=== PATIENT | female | born 1975 | race American Indian/Alaskan Native ===

== ENCOUNTER 2018-04-23 15:00 | Outpatient (CLI) | payer OTHER ==
--- NOTE | 2018-04-23 16:34 | Mammography Report ---
BILATERAL DIGITAL SCREENING MAMMOGRAM WITH CAD:04/23/18 CLINICAL: Baseline screening. COMPARISON:None. FINDINGS: The breasts are heterogeneously dense, which may obscure small masses. Right asymmetries in both views require additional imaging. No architectural distortion or suspicious calcifications. The left breast is negative. IMPRESSION: Right asymmetries requiring further workup. BI-RADS CATEGORY: 0 -- Needs Additional Imaging RECOMMENDATION: Recall for right ML and spot compression views and right breast ultrasound if needed. ACR BI-RADS MAMMOGRAPHIC CODES: 0 = Needs additional imaging evaluation; 1 = Negative; 2 = Benign; 3 = Probably benign; 4 = Suspicious; 5 = Malignant; 6 = Known biopsy-proven malignancy COMMENT: 1. Dense breast tissue, i.e., adenosis, fibrocystic changes, etc., may obscure an underlying neoplasm. 2. Approximately 10% of cancers are not detected with mammography. 3. A negative mammography report should not delay biopsy if a clinically suspicious mass is present.
== END 2018-04-23 15:01 | disposition home or self-care (01) ==
LOC: SPVWC 15:00
PROVIDERS: ATTEND Internal Medicine
DX: Z12.31 Encounter for screening mammogram for malignant neoplasm of breast (principal)
CPT/HCPCS: 77067